=== PATIENT | female | born 1950 | race Caucasian/White ===

== ENCOUNTER 2020-12-03 09:09 | Emergency (ER) | payer OTHER ==
[~2020-12-03] VITALS: Ht 172.7 cm; Wt 90.1 kg
[2020-12-03] MEDS ORDERED: SODIUM CHLORIDE FLUSH 10ML SYR IVF ONE (09:30)
--- NOTE | 2020-12-03 09:47 | NUR ---
first contact with pt. pt woke d/t fast heart bead at 7am. pt denies cp/sob/na/v/dunlap at this time. hx of hld/htn. all monitors in place. call light within reach. hr is 130-140 at this time. edmd at bedside evaluating at this time. pt's aox4. resps even and unlabored.
--- NOTE | 2020-12-03 09:49 | NUR ---
ivp est on r hand with no complications. ns infusing at this time.
[2020-12-03 09:52] LABS: BASOPHILS % (AUTO) 1 % (0-1); EOSINOPHILS % (AUTO) 2 % (1-7); LYMPHOCYTES % (AUTO) 27 % (22-44); MEAN CORPUSCULAR HEMOGLOBIN 30.4 pg (27.0-34.8); MEAN CORPUSCULAR HGB CONC 34.7 g/dL (32.4-35.8); MEAN PLATELET VOLUME 7.4 fL (7.4-10.4); MONOCYTES % (AUTO) 6 % (2-9); NEUTROPHILS % (AUTO) 63 % (42-75); PLATELET COUNT 229 x10^3/uL (130-400); RED BLOOD COUNT 4.99 x10^6/uL (3.82-5.3); RED CELL DISTRIBUTION WIDTH 13.4 % (9.6-15.2)
[2020-12-03 09:59] LABS: MD NO
--- NOTE | 2020-12-03 09:59 | NUR ---
ekg done at bedside by emt at this time.
[2020-12-03 10:00] LABS: ALANINE AMINOTRANSFERASE 41 U/L (12-78); ALBUMIN 4.4 g/dL (3.4-5.0); ANION GAP 9 mmol/L (5-15); CALCIUM 9.9 mg/dL (8.5-10.1); CHLORIDE 108 mmol/L (98-107)
[2020-12-03] MEDS ORDERED: SODIUM CHLORIDE 0.9% 1,000ML IVBOLUS ONE (10:00)
--- NOTE | 2020-12-03 10:04 | NUR ---
pt's hr is 80-90's at this time. pa notified.
[2020-12-03 10:05] LABS: ALKALINE PHOSPHATASE 118 U/L (45-117); BILIRUBIN,TOTAL 0.5 mg/dL (0.2-1.0); TOTAL PROTEIN 7.6 g/dL (6.4-8.2); TROPONIN I < 0.015 ng/mL (0.000-0.045)
[2020-12-03] MEDS ORDERED: METOPROLOL 1 MG/ML, 5ML ONE (10:20)
--- NOTE | 2020-12-03 10:27 | NUR ---
pt medicated per emar. pt tolerated well.
[2020-12-03] MEDS ORDERED: METOPROLOL 1 MG/ML, 5ML IVPush ONE (10:30)
[2020-12-03 10:35] VITALS: BP 140/87
--- NOTE | 2020-12-03 10:54 | NUR ---
Patient given discharge instructions and they have confirmed that they understand the instructions. Patient ambulatory with steady gait.
== END 2020-12-03 10:55 | disposition home or self-care (01) ==
LOC: ED 09:49
DX: I48.92 Unspecified atrial flutter (principal); I44.30 Unspecified atrioventricular block; R94.31 Abnormal electrocardiogram [ECG] [EKG]; I21.9 Acute myocardial infarction, unspecified; I10 Essential (primary) hypertension; E78.5 Hyperlipidemia, unspecified
CPT/HCPCS: 36415; 71045; 80053; 84443; 84484; 85025; 93005; 96361; 96374; 99285; J7030

== ENCOUNTER → 2021-01-30 | Outpatient (CLI) | payer OTHER | END | disposition home or self-care (01) | LOC: CFH 15:43 | PROVIDERS: ATTEND Internal Medicine Cardiovascular Disease | DX: I08.8 Other rheumatic multiple valve diseases (principal); I10 Essential (primary) hypertension; E78.5 Hyperlipidemia, unspecified; Z87.891 Personal history of nicotine dependence; Z79.01 Long term (current) use of anticoagulants | CPT/HCPCS: 93306 ==